=== PATIENT | male | born 1985 | race Two or more races ===

== ENCOUNTER 2024-01-23 12:23 | Emergency (ER) | payer OTHER ==
[~2024-01-23] VITALS: Ht 188 cm; Wt 87.1 kg
[2024-01-23] MEDS ORDERED: BENZONATATE 100 MG CAPSULE PO ONE (13:45)
[2024-01-23] MEDS ORDERED: LORATADINE/PSEUDOEPHEDRINE 1 TAB TAB.SR.24H PO ONE (13:45)
[2024-01-23 14:04] LABS: HEMATOCRIT 42.9 % (39.0-48.0); HEMOGLOBIN 14.7 g/dL (13-16.00); MEAN CELL VOLUME 87.1 fL (80.0-100.00); MEAN CORPUSCULAR HEMOGLOBIN 29.8 pg (27.00-32.0); MEAN CORPUSCULAR HGB CONC 34.2 g/dl (32.0-36.0); PLATELET COUNT 222 K/uL (150-450); RED BLOOD COUNT 4.92 M/uL (4.00-6.00); RED CELL DISTRIBUTION WIDTH 13.1 % (11.5-14.5)
== END 2024-01-23 15:24 | disposition home or self-care (01) ==
LOC: ER 12:24
PROVIDERS: General Practice
DX: U07.1 COVID-19 (principal)